=== PATIENT | male | born 1960 | race Two or more races ===

== ENCOUNTER 2018-09-06 02:47 | Emergency (ER) | payer OTHER ==
[~2018-09-06] VITALS: Ht 188 cm; Wt 82.6 kg
[2018-09-06] MEDS ORDERED: COZAAR100 MG (03:32)
[2018-09-06] MEDS ORDERED: MUCINEX DM ER1 EAC1 PO (08:52)
[2018-09-06] MEDS ORDERED: FLONASE ALLERG9.9 ML NASAL (08:52)
[2018-09-06] MEDS ORDERED: CEFDINIR300 MG PO (08:52)
== END 2018-09-06 09:15 | disposition home or self-care (01) ==
LOC: ER 02:47
DX: H10.12 Acute atopic conjunctivitis, left eye (principal); J06.9 Acute upper respiratory infection, unspecified